=== PATIENT | female | born 1965 | race Caucasian/White ===

== ENCOUNTER 2017-12-19 16:46 | Emergency (ER) | payer OTHER ==
[~2017-12-19] VITALS: Ht 152.4 cm; Wt 102.3 kg
[2017-12-19] MEDS ORDERED: ESTROGEN (17:08)
[2017-12-19 17:38] LABS: HEMATOCRIT 46.5 % (37.0-47.0); HEMOGLOBIN 15.4 g/dl (12.0-16.0); IMMATURE GRANULOCYTES 0.3 % (0.0-1.0); MEAN CELL VOLUME 90.6 fL CALC (80.0-100.0); MEAN CORPUSCULAR HGB CONC 33.1 g/L CALC (32.0-36.0); NEUT# 7.18 thou/uL (2.00-7.15); RED BLOOD COUNT 5.13 mill/uL (4.20-5.60); RED CELL DISTRI WIDTH 13.2 % (11.5-15.5)
[2017-12-19 17:53] LABS: ALBUMIN 4.3 g/dL (3.2-5.0); ALKALINE PHOSPHATASE 90 u/l (38-126); ANION GAP 12 (6-22 (CALC)); BILIRUBIN, TOTAL 0.5 mg/dL (0.0-1.4); BUN 14 mg/dL (7-17); BUN/CREATININE RATIO 19 (12-20 (CALC)); CARBON DIOXIDE 25 mmol/l (22-30); CHLORIDE 104 mmol/l (95-108); CREATININE 0.7 mg/dL (0.5-1.0); GFR > 60 ML/MIN (>=60 (CALC)); GFR FOR AFR.AMER. > 60 ML/MIN (>=60 (CALC)); LIPASE 45 u/l (23-300); POTASSIUM 4.1 mmol/l (3.5-5.1); SGOT/AST 48 u/l (14-36); SGPT/ALT 47 u/l (9-52); SODIUM 137 mmol/l (137-146); TOTAL PROTEIN 7.8 g/dL (6.3-8.2)
[2017-12-19 17:59] LABS: PROTHROMBIN TIME 10.7 SECONDS (9.0-12.5)
[2017-12-19] MEDS ORDERED: AUGMENTIN875TAB PO (20:01)
[2017-12-19] MEDS ORDERED: HYDROCO/APAP1 TA9 PO (20:07)
[2017-12-19 21:20] VITALS: BP 135/69
== END 2017-12-19 21:20 | disposition home or self-care (01) | DRG 156 ==
LOC: ED 16:46
PROVIDERS: Family Medicine
PROC: 0HQKXZZ Repair Right Lower Leg Skin, External Approach (ICD-10-PCS; principal; 2017-12-19)
PROC: 0HQ1XZZ Repair Face Skin, External Approach (ICD-10-PCS; 2017-12-19)
DX: S02.2XXA Fracture of nasal bones, initial encounter for closed fracture (principal); J34.2 Deviated nasal septum; S05.11XA Contusion of eyeball and orbital tissues, right eye, initial encounter; S81.011A Laceration without foreign body, right knee, initial encounter; V95.9XXA Unspecified aircraft accident injuring occupant, initial encounter; Y93.89 Activity, other specified; Y92.520 Airport as the place of occurrence of the external cause; S01.81XA Laceration without foreign body of other part of head, initial encounter
CPT/HCPCS: Q9967